=== PATIENT | female | born 1955 | race Caucasian/White ===

== ENCOUNTER 2022-11-30 23:47 | Emergency (ER) | payer MEDICARE, OTHER, SELFPAY ==
[2022-11-30 23:48] VITALS: BP 161/120; PULSE 153; RESP 18; TEMP 35.6; O2SAT 95; BMI 37.8
--- NOTE | 2022-11-30 23:53 | EKG12_ITS ---
Test Reason : DYSRHYTHMIA Blood Pressure : / mmHG Vent. Rate : 137 BPM Atrial Rate : 250 BPM P-R Int : 000 ms QRS Dur : 084 ms QT Int : 308 ms P-R-T Axes : 000 038 -60 degrees QTc Int : 465 ms Atrial fibrillation Marked ST abnormality, possible lateral subendocardial injury Abnormal ECG Confirmed by BINTA BARR, SIM ([id number]), assistant editor ELIU HUSSEIN ([id number]) on 12/01/2022 1:14:17 PM Referred By: VLADIMIR Confirmed By:JOSE JUDD MD
--- NOTE | 2022-12-01 | RAD_ITS ---
INDICATION: chest pain EXAMINATION/TECHNIQUE: X-RAY - XR Chest 1 View COMPARISON: None. FINDINGS: LINES/DEVICES: None. LUNGS: No pulmonary edema or focal airspace consolidation. No sizable pleural effusion. No pneumothorax detected. MEDIASTINUM AND CARDIOVASCULAR STRUCTURES: Heart size within normal limits. Mediastinal contours unremarkable. BONES AND SOFT TISSUES: No acute findings. RAD/Chest 1 View (Portable) IMPRESSION: No radiographic evidence of acute cardiopulmonary disease. Electronically Signed: Tano Lindo MD at 1:04 EDT ,
[2022-12-01 00:05] LABS: Absolute Lymphocyte Count 2.69 X10^3/uL (0.83-4.51); Absolute Neutrophil Count 4.2 X10^3/uL (2.0-7.7); Basophil% 1.2 % (0-1); Eosinophil# 0.74 X10^3/uL; Eosinophils% 8.6 % (0-5); Hematocrit 42.1 % (37-47); Hemoglobin 14.3 g/dL (12.0-15.0); Lymphocyte # 2.69 X10^3/ul (0.83-4.51); Lymphocyte % 31.3 % (19-41); Mean Corpuscular Hgb 31.8 pg (27.0-32.0); Mean Corpuscular Volume 93.6 fL (81-99); Monocyte# 0.81 X10^3/uL; Monocyte% 9.4 % (0-10); NRBC Flagged by Analyzer 0 % (0-5); Neutrophil # 4.23 X10^3/uL (2.7-7.7); Neutrophil % 49.3 % (47-70); Platelet Count 384 K/mm3 (150-450); RBC Distribution Width CV 12.8 % (11.6-14.6); RBC Distribution Width SD 44.1 fl (35.1-43.9); White Blood Count 8.6 K/mm3 (4.4-11.0)
[2022-12-01 00:25] LABS: Anion Gap 10 (5-15); BUN 26 mg/dL (7-18); BUN/Creat Ratio 39.6 RATIO (10-20); Calcium,Total 9.4 mg/dL (8.5-10.1); Chloride 108 mmol/L (98-107); Creatinine, Serum 0.66 mg/dL (0.55-1.02); EST Glomerular Filtration Rate 95 mL/min (>60); Est Glom Filt Rate - Afr Amer 115 mL/min (>60); Estimated Creatinine Clearance 40.07 ml/min; Glucose 99 mg/dL (74-106); Potassium 3.3 mmol/L (3.5-5.1); Sodium Level 141 mmol/L (136-145); Troponin-I HS (w/2H Reflex) 6 pg/mL (3.0-54.0)
[2022-12-01 00:27] VITALS: BP 130/79; PULSE 133; RESP 16; O2SAT 94
--- NOTE | 2022-12-01 01:10 | EDS_ITS ---
HPI History of Present Illness Chief Complaint: Palpitations Informant: patient Onset/Context/Timing Onset: Today Narrative Narrative: Couple hours ago, patient states she was wearing her Apple Watch and it told her her heart rate was abnormally high and that she was in atrial fibrillation. This is never happened before. She was asymptomatic, but while she has been here she has felt some occasional fluttering in her chest but no other symptoms. No recent illness. She has 1 or 2 drinks of alcohol most days, she had 2 drinks tonight. She has been compliant with her blood pressure medications which include carvedilol 20 mg twice daily in the last when she took was about 3 hours ago. No history of blood clots or need to be on anticoagulation for any reason. No history of any heart problems prior to this. [facility] Medical History Hypertension Patent foramen ovale Home Medications amlodipine 10 mg tablet 10 mg PO DAILY 12/01/22 [History Last Taken Unknown] apixaban 5 mg tablet (Eliquis) 5 mg PO BID #60 tabs 12/01/22 [Rx Last Taken Unknown] aspirin 81 mg capsule 81 mg PO DAILY 12/01/22 [History Last Taken Unknown] carvedilol 25 mg tablet 25 mg PO BID 12/01/22 [History Last Taken Unknown] diltiazem HCl 120 mg capsule,extended release 24 hr 120 mg PO DAILY #30 caps 12/01/22 [Rx Last Taken Unknown] hydrochlorothiazide 25 mg tablet 25 mg PO DAILY 12/01/22 [History Last Taken Unknown] ibandronate 150 mg tablet 150 mg PO QMONTH 12/01/22 [History Last Taken Unknown] omeprazole 20 mg capsule,delayed release 20 mg PO DAILY 12/01/22 [History Last Taken Unknown] Allergy/AdvReac Type Severity Reaction Status Date / Time NIKHIL Inhibitors AdvReac Other Verified 12/01/22 00:04 Surgical History (Updated 12/01/22 @ 00:29 by Marilyn Singh) History of back surgery Social History Smoking Status: Never smoker ROS ROS ED Constitutional Constitutional ED: Denies chills or fever(s) Eyes Eyes: Denies change in vision or diplopia ENT ENT ED: Denies rhinorrhea or sore throat Cardiovascular Cardiovascular: Reports palpitations; Denies chest pain Respiratory/Chest Respiratory/Chest: Denies cough or dyspnea Gastrointestinal Gastrointestinal: Denies abdominal pain, diarrhea, nausea or vomiting Genitourinary Genitourinary ED: Denies dysuria or hematuria Musculoskeletal Musculoskeletal: Denies back pain or neck pain Integumentary Denies abscess or rash Neurologic Neurologic: Denies headache(s), paresthesias or weakness Psychiatric Psychiatric: Denies anxiety or suicidal thoughts EXAM Physical Exam Const Vital Signs: 11/30/22 23:48 12/01/22 00:27 12/01/22 00:27 Temperature 96.0 F L Temperature Source Temporal Pulse Rate 153 H 133 H Respiratory Rate 18 16 Respiratory Effort Blood Pressure 161/120 H 130/79 H Blood Pressure Mean 133 96 Pulse Ox 95 94 Oxygen Delivery Method Room Air Room Air Room Air 12/01/22 00:27 Temperature Temperature Source Pulse Rate Respiratory Rate Respiratory Effort Normal Blood Pressure Blood Pressure Mean Pulse Ox Oxygen Delivery Method Positive well nourished, well developed and obese General Appearance ED: well developed and NAD Nutritional Appearance: obese HEENT Reports moist mucous membranes normocephalic and atraumatic Eyes PERRL and EOMs intact bilaterally Neck full ROM and supple Resp normal respiratory effort and clear to auscultation bilaterally Cardio Rate: tachycardic Rhythm: abnormal rhythm irregularly irregular GI non-tender and non-distended Auscultation: normoactive bowel sounds Palpation: soft Back/Spine no CVA tenderness General Back: other FROM Extremity normal to inspection General Extremety ED: Negative for edema, pulses abnormal or tenderness General Extremity: Negative for edema or pulses abnormal Neuro oriented x3, CN's II-XII intact bilaterally and no sensory deficits noted Sensorium / Orientation: awake and alert Motor Exam: strength 5/5 throughout Skin no rashes or lesions noted and no wounds MDM MDM MDM Narrative Medical decision making narrative: Given the patient is already on a decent amount of beta-cornel 25 mg of car vedilol twice daily, I am adding Cardizem to see if we can rate control her. It is clear that she did not have RVR for more than a couple hours, but it is not clear since she has no symptoms with this, if she has had more rate controlled atrial fibrillation recently. Therefore I do not feel cardioverting her is appropriate at this time. She has no symptoms of angina. Nursing did send labs per protocol prior to my evaluation, her potassium is a little low which we will treat, her BUN is little high we will treat with fluids, and her troponin is within normal limits. [id number] score is 3, so anticoagulation is recommended. After Cardizem 20 mg IV, her blood pressure maintained in the 130s, and her heart rate came down to the 80-90 range. She felt well and asymptomatic. Given this, I do not think we need to admit her to the hospital. She can follow-up with cardiology as an outpatient. I will add Cardizem CD 120 mg once daily to her regimen, and give her a dose prior to discharge, as well as a starter pack for Eliquis. Patient is comfortable with this plan we discussed reasons to return. Lab Data Attestation: I reviewed the patient's lab results. Labs: Laboratory Results - last 24 hr 11/30/22 11/30/22 23:59 23:59 WBC 8.6 RBC 4.50 Hgb 14.3 Hct 42.1 MCV 93.6 MCH 31.8 MCHC 34.0 RDW Std Deviation 44.1 H RDW Coeff of Albina 12.8 Plt Count 384 MPV 10.0 Immature Gran % (Auto) 0.200 Neut % (Auto) 49.3 Lymph % (Auto) 31.3 Mayes % (Auto) 9.4 Eos % (Auto) 8.6 H Baso % (Auto) 1.2 H Absolute Neuts (auto) 4.2 Absolute Lymphs (auto) 2.69 Nucleated RBC % 0 Sodium 141 Potassium 3.3 L Chloride 108 H Carbon Dioxide 23.0 Anion Gap 10 BUN 26 H Creatinine 0.66 Estim Creat Clear Calc 40.07 Est GFR (MDRD) Af Amer 115 Est GFR (MDRD) Non-Af 95 BUN/Creatinine Ratio 39.6 H Glucose 99 Calcium 9.4 Troponin I High Sens 6 Radiography Diagnostic Testing: Clinical Impression(s) from Imaging Studies Chest X-Ray 12/01/22 00:00 IMPRESSION: No radiographic evidence of acute cardiopulmonary disease. Electronically Signed: Tano Lindo MD at 1:04 EDT , Rhythm Strip Rhythm Strip: A-fib Rate: 125 Ectopy: None EKG Initial EKG: Attestation: I personally reviewed and interpreted this EKG as follows: Interpretation: No Acute Injury Pattern, Atrial Fibrillation and Non- Specific ST Changes Prior: No Prior Discharge Plan Triage Chief Complaint: Palpitations ED Provider: Jus Cornelius Dx/Rx/DC Orders Clinical Impression: Atrial fibrillation with RVR Instructions: AFib Dc, Calcium Channel Blockers Dc, AFib Preventing Stroke Prescriptions: New Eliquis 5 mg tablet 5 mg PO BID Qty: 60 0RF diltiazem HCl 120 mg capsule,extended release 24hr 120 mg PO DAILY Qty: 30 0RF No Action carvedilol 25 mg Tablet 25 mg PO BID Rx Instructions: must administer with a meal/food amlodipine 10 mg Tablet 10 mg PO DAILY omeprazole 20 mg capsule,delayed release(DR/EC) 20 mg PO DAILY Label Comments: TAKE ONE CAPSULE BY MOUTH EVERY DAY hydrochlorothiazide 25 mg Tablet 25 mg PO DAILY ibandronate 150 mg tablet 150 mg PO QMONTH Label Comments: take 1 tablet by mouth monthly with 8-10 ounces of water. stay upright and do not eat or drink for 1 hour aspirin 81 mg Capsule 81 mg PO DAILY Primary Care Provider: Juan C Cooper Referrals: Ricardo Russell MD [Med Staff - Active Staff] - As soon as possible Juan C Cooper MD [Primary Care Provider] - Activity Restrictions/Additional Instructions: The next pill of the diltiazem should be morning of 12/02 since we gave you a dose early in the ER 12/01. Start the Eliquis in the morning, after you get the medication. Disposition Disposition: Home, Self Care
[2022-12-01] MEDS: dilTIAZem 25 MG/5 ML Vial 20 MG IV BOLUS (01:15)
[2022-12-01] MEDS: Potassium Chloride Oral Tablet 20 MEQ 40 MEQ PO (01:41)
[2022-12-01] MEDS: 0.9% Normal Saline 1,000 ML 999 ML IV (01:41)
[2022-12-01] MEDS: dilTIAZem CD 120 MG Capsule PO (03:25)
[2022-12-01 03:28] VITALS: BP 114/68; PULSE 75; RESP 18; O2SAT 100
== END 2022-12-01 03:29 | disposition home or self-care (01) ==
PROVIDERS: Emergency Provider Emergency Medicine; PCP Internal Medicine; Visit Provider Emergency Medicine
DX: I48.91 Unspecified atrial fibrillation (principal); I10 Essential (primary) hypertension; Q21.12 Patent foramen ovale
CPT/HCPCS: 71045; 80048; 84484; 85025; 93005; 96360; 96361; 99284; J7030; A4216